=== PATIENT | female | born 1990 | race Caucasian/White ===

== ENCOUNTER 2016-08-03 13:17 | Emergency (ER) | payer MEDICAID ==
[~2016-08-03] VITALS: Ht 157.5 cm; Wt 78.5 kg
[~2016-08-03 13:17] MED LIST: PRENATAL1 TA1
[2016-08-03 13:41] VITALS: BP 140/74
--- NOTE | 2016-08-03 13:44 | NUR ---
PT TO ER BED 8.
--- NOTE | 2016-08-03 13:50 | NUR ---
25/F presents to ED for evaluation of right rib pain x1 week. Patient denies any injury or trauma. Pt states she has a cough for the past week and states she has been having this pain for a week. Pt describes the pain worsening when she takes a deep breath in and states "When I take a deep breath, sometimes I get stuck, and I have to slowly let my air out because it hurts to bad." Pt also states the pain worsened while lying flat. Pt states she had trouble sleeping last night. Pt appears calm and relaxed. Lungs clear bilaterally. Patient is AOX4, speaking in full sentences. Skin intact, no bruises noted. VSS. Pt sitting at the edge of the bed for comfort.
--- NOTE | 2016-08-03 13:57 | NUR ---
Patient being evaluated by physician at bedside.
[2016-08-03] MEDS ORDERED: ACETAMIN/CODEINE 120/12MG-5ML 5 ML UDC PO ONE (14:05)
[2016-08-03] MEDS ORDERED: IBUPROFEN 800 MG TAB PO ONE (14:05)
--- NOTE | 2016-08-03 14:21 | NUR ---
X-Ray at bedside.
--- NOTE | 2016-08-03 14:22 | NUR ---
Patient taken to x-ray via w/c.
--- NOTE | 2016-08-03 14:37 | NUR ---
Patient returned from x-ray and placed in bed 8.
--- NOTE | 2016-08-03 15:10 | NUR ---
PATIENT FEELING MUCH BETTER
--- NOTE | 2016-08-03 15:13 | NUR ---
JORDEND SPOKE TO PATIENT PRIOR TO DISCHARGE
[2016-08-03 15:15] VITALS: BP 138/98
--- NOTE | 2016-08-03 15:15 | NUR ---
Chart checked and completed. The patient's care was reviewed and supervised by Gustavo Joshi RN.
--- NOTE | 2016-08-03 15:15 | NUR ---
Patient discharged with v/s stable. Written and verbal after care instructions given and explained. Patient alert, oriented and verbalized understanding of instructions. Ambulatory with steady gait. All questions addressed prior to discharge. ID band removed. Patient advised to follow up with PMD. Rx of MOTRIN,TYLENOL given. Patient educated on indication of medication including possible reaction and side effects. Opportunity to ask questions provided and answered.
== END 2016-08-03 15:15 | disposition home or self-care (01) ==
LOC: MED 13:17
DX: S29.012A Strain of muscle and tendon of back wall of thorax, initial encounter (principal); R03.0 Elevated blood-pressure reading, without diagnosis of hypertension; X58.XXXA Exposure to other specified factors, initial encounter; Y93.89 Activity, other specified; Y92.89 Other specified places as the place of occurrence of the external cause; Y99.8 Other external cause status